=== PATIENT | female | born 1985 | race Caucasian/White ===

== ENCOUNTER 2017-03-19 18:50 | Emergency (ER) | payer BC ==
--- NOTE | 2017-03-19 19:00 | EDPHY ---
H & P Stated Complaint: BILAT CALF PAIN L>R FOR 1 WEEK FREQ FLIGHTS PRIOR Time Seen by Provider: 03/19/17 18:59 HPI/ROS: CHIEF COMPLAINT: Bilateral calf soreness HISTORY OF PRESENT ILLNESS: The patient is a 31 y/o female complaining of bilateral calf soreness for one week. 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 The left calf has been more painful than the right. She did not notice any swelling. She had mild shortness of breath while hiking today, but believes this is due to altitude. Denies control use, family history of blood clots, chest pain, weakness, paresthesias, or other pertinent symptoms. REVIEW OF SYSTEMS: A ten point review of systems was performed and is negative with the exception of the items mentioned in the HPI. Past medical history: Denies Past surgical history: Denies Family history: Denies Social history: Works in [employer] Lives in [facility] General Appearance: Alert. Vital signs reviewed. Blood pressure 107/87 Eyes: Pupils equal and round, no conjunctival injection, no discharge. Anicteric. ENT, Mouth: Mucous membranes are moist, no oropharyngeal erythema or edema. Neck: No lymphadenopathy, supple. Respiratory: Lungs are clear to auscultation; no wheezes, rales, or rhonchi. Cardiovascular: Regular rate and rhythm; no murmur, rub, or gallop. Gastrointestinal: Abdomen is soft and nontender, no masses or organomegaly, bowel sounds normal. Skin: Warm and dry, no rashes on exposed skin, normal color. Back: Nontender to palpation over the thoracolumbar spine. No CVAT. Extremities: Mild bilateral calf tenderness. No lower extremity edema, no calf swelling. Pulses: 2+ TP bilaterally, 1+ DP bilaterally. Neurological: Alert and oriented. Moving all four extremities easily and equally. Psychiatric: Normal affect. - Personal History LMP (Females 10-55): 22-28 Days Ago Current Tetanus/Diphtheria Vaccine: Yes - Medical/Surgical History Hx Asthma: No Hx Chronic Respiratory Disease: No Hx Diabetes: No Hx Cardiac Disease: No Hx Renal Disease: No Hx Cirrhosis: No Hx Alcoholism: No Hx HIV/AIDS: No Hx Splenectomy or Spleen Trauma: No Other PMH: DENIES - Social History Smoking Status: Never smoked Constitutional: Initial Vital Signs Temperature (C) 37 C 03/19/17 18:52 Heart Rate 92 03/19/17 18:52 Respiratory Rate 16 03/19/17 18:52 Blood Pressure 107/87 H 03/19/17 18:52 O2 Sat (%) 95 03/19/17 18:52 O2 Delivery Mode Room Air Allergies/Adverse Reactions: ibuprofen [From Advil] Allergy (Verified 03/19/17 18:52) Home Medications: Medication Instructions Recorded NK [No Known Home Meds] 03/19/17 Medical Decision Making - Diagnostics Imaging Results: Imaging Impressions Extremity Venous Study 03/19/17 19:05 Impression: No deep venous thrombosis bilateral legs. Findings and recommendations discussed with Emergency Department physician, NING GARZA at 20:05 hour, 03/19/2017. Final report concurs with initial preliminary interpretation. Imaging: Discussed imaging studies w/ shell reprint operator Radiologist, I viewed and interpreted images myself ED Course/Re-evaluation: The patient is a 31 y/o female presenting with mild bilateral calf tenderness without edema. She flew over 30 hours last week for work. 1955 p.m.. Ultrasounds completed. Patient resting comfortably. Will await results. 2007: Spoke with radiologist, he reports there is no lower extremity DVT. She has no respiratory symptoms. Perc negative. I do not suspect PE. 2008: Reassessed patient and discussed ultrasound results. Return precautions provided; patient is comfortable with this plan. Differential Diagnosis: Considered a differential diagnosis that includes but is not limited to deep venous thrombosis, superficial thrombophlebitis, muscle strain, and compartment syndrome. Departure - Departure Disposition: Home, Routine, Self-Care Clinical Impression: Muscle soreness Condition: Good Instructions: Musculoskeletal Pain (ED) Additional Instructions: Adult Pain Control: We recommend Acetaminophen (Tylenol) and Ibuprofen (Motrin,Advil) for pain control. When pain is severe, both drugs can be used at the same time, but at different intervals. Please note the time differences. Your dose is: Acetaminophen [650]mg every 4 to 6 hours Ibuprofen [400]mg every [4-6] hours with food Note: No more than 3000mg of Acetaminophen should be taken in 24 hours (for an adult). Follow up with your primary care provider in the next week for unimproved symptoms. Return to the emergency department for worsening pain, swelling, numbness, weakness or other concerns. Referrals: Jas Lange [Other] - As per Instructions Report Scribed for: Ning Garza Report Scribed by: Denice Solis Date of Report: 03/19/17 Time of Report: 19:08 Physician Review and Approval Statement: 03/19/17 19:00 Portions of this note were transcribed by the medical editor. I, Dr. Ning Garza, personally performed the history, physical exam, and medical decision- making; and confirmed the accuracy of the information in the transcribed note.
[2017-03-19 20:29] VITALS: BP 110/68; PULSE 64; RESP 18; TEMP 97.9; O2SAT 99
== END 2017-03-19 20:29 | disposition home or self-care (01) ==
DX: M79.1 Myalgia (principal)

== ENCOUNTER → 2017-06-16 | Outpatient (CLI) | payer BC | LOC: BMCIMAGING 16:06 | PROVIDERS: ATTEND Family Medicine | DX: R05 Cough (principal); K21.9 Gastro-esophageal reflux disease without esophagitis ==